=== PATIENT | male | born 1935 | race Caucasian/White ===

== ENCOUNTER 2022-02-07 17:53 | Inpatient (IN) | payer MEDICARE ==
[2022-02-07 18:30] LABS: #Monocytes 0.8 10x3/uL (0.0-1.1); #Neutrophils 5.9 10x3/uL (1.5-8.4); %Basophils 0.4 % (0.0-2.0); %Lymphocytes 10.1 % (18.0-47.0); %Monocytes 10.8 % (0.0-10.0); %Neutrophils 78.3 % (40.0-75.0); Hemoglobin 13.4 g/dL (13.5-17.5); Mean Corpuscular HGB CONC 34.4 g/dL (32.0-36.0); Mean Corpuscular Hemoglobin 31.5 pg (27.0-33.0); Mean Corpuscular Volume 91.5 fl (81.2-95.1); Mean Platelet Volume 10.1 fl (7.4-10.4); Platelet Count 150 10x3/uL (150-450); RBC Distribution Width 13.2 % (11.5-14.5); Red Blood Cell (RBC) Count 4.26 10x6/uL (4.32-5.72); White Blood Cell (WBC) Count 7.5 10x3/uL (3.5-10.5)
[2022-02-07] MEDS ORDERED: cefTRIAXone\\ROCEPHIN 2 GM VIAL ONE (18:42)
[2022-02-07 18:46] LABS: ALT (SGPT) 14 U/L (8-55); AST (SGOT) 24 U/L (5-34); Albumin 3.8 g/dL (3.4-4.8); Alkaline Phosphatase 63 U/L (40-110); Anion Gap 14 mmol/L (10-20); BUN (Urea Nitrogen) 16 mg/dL (8.4-25.7); Bilirubin, Total 0.6 mg/dL (0.2-1.2); CK (CPK) 975 U/L (30-200); Calc. Creatinine Clearance 0 mL/min (70-130); Calcium 8.8 mg/dL (7.8-10.44); Carbon Dioxide 25 mmol/L (23-31); Chloride 106 mmol/L (98-107); Estimated GFR 76; Globulin 2.7 g/dL (2.4-3.5); Glucose 122 mg/dL (83-110); Potassium 3.4 mmol/L (3.5-5.1); Protein, Total 6.5 g/dL (5.8-8.1); Sodium 142 mmol/L (136-145)
[2022-02-07 19:31] LABS: Bilirubin Neg (Negative); Blood, Urine 25 (Negative); Clarity Clear (Clear); Glucose, Urine (Dipstick) Normal (Negative); Ketone, Urine 5 mg/dL (Negative); Leukocyte Negative (Negative); Nitrite Negative (Negative); Protein, Urine (Dipstick) 15 mg/dl (Neg-Trace); Specific Gravity, Urine 1.015 (1.002-1.036); Urobilinogen Normal mg/dL (Less than 2)
[2022-02-07 19:40] LABS: Bacteria/HPF None Seen HPF (None Seen); RBC/HPF 0-3 HPF (0-3); Squamous Epithelial None Seen HPF (0-3); WBC/HPF None Seen HPF (0-3)
[2022-02-07] MEDS ORDERED: Vancomycin HCl 500 MG VIAL ONE (20:37)
[2022-02-07 20:55] LABS: SARS-CoV-2 NAA Rapid Test DETECTED (NotDetected)
[2022-02-07] MEDS ORDERED: Ascorbic Acid 500 mg Chewable Tablet PO SCH (22:30)
[2022-02-07] MEDS ORDERED: Aspirin 81 mg Enteric Coated Tablet PO SCH (22:30)
[2022-02-07] MEDS ORDERED: Cholecalciferol 1,000 UNITS (25 MCG) TAB PO SCH (22:30)
[2022-02-07] MEDS ORDERED: Potassium Chloride 20 MEQ TAB PO SCH (22:30)
[2022-02-07] MEDS ORDERED: PAXLOVID REQUEST IVPB PRN (22:39)
[2022-02-07 22:40] LABS: Magnesium 1.7 mg/dL (1.6-2.6)
[2022-02-07] MEDS ORDERED: Zinc Sulfate 220 MG CAP PO SCH (22:45)
[2022-02-07] MEDS ORDERED: Ziprasidone 20 MG VIAL ONE (23:13)
[2022-02-07] MEDS ORDERED: Sterile Water 10 ML ONE (23:13)
[2022-02-08] MEDS: Zinc Sulfate 220 MG CAP PO SCH (00:45)
[2022-02-08] MEDS: Lactated Ringer's 1,000 ML IV SCH ×4 (00:46→21:27)
[2022-02-08 04:31] LABS: Anion Gap 13 mmol/L (10-20); BUN (Urea Nitrogen) 12 mg/dL (8.4-25.7); CK (CPK) 1422 U/L (30-200); Calc. Creatinine Clearance 74 mL/min (70-130); Calcium 8.6 mg/dL (7.8-10.44); Carbon Dioxide 25 mmol/L (23-31); Chloride 108 mmol/L (98-107); Estimated GFR 85; Glucose 104 mg/dL (83-110); Potassium 3.4 mmol/L (3.5-5.1); Sodium 143 mmol/L (136-145)
[2022-02-08 04:36] LABS: #Basophils 0.1 10x3/uL (0.0-0.2); #Neutrophils 6.2 10x3/uL (1.5-8.4); %Basophils 0.6 % (0.0-2.0); %Eosinophils 0.1 % (0.0-6.0); %Lymphocytes 14.9 % (18.0-47.0); %Monocytes 11.3 % (0.0-10.0); %Neutrophils 72.9 % (40.0-75.0); Hemoglobin 12.7 g/dL (13.5-17.5); Mean Corpuscular HGB CONC 33.6 g/dL (32.0-36.0); Mean Corpuscular Volume 92.2 fl (81.2-95.1); Mean Platelet Volume 10.6 fl (7.4-10.4); Platelet Count 130 10x3/uL (150-450); RBC Distribution Width 13.2 % (11.5-14.5); White Blood Cell (WBC) Count 8.5 10x3/uL (3.5-10.5)
[2022-02-08] MEDS: Aspirin 81 mg Enteric Coated Tablet PO SCH (08:02)
[2022-02-08] MEDS: Ascorbic Acid 500 mg Chewable Tablet PO SCH (08:02)
[2022-02-08] MEDS: Cholecalciferol 1,000 UNITS (25 MCG) TAB PO SCH (08:02)
[2022-02-08] MEDS: Enoxaparin Sodium 40 MG/0.4 ML SYRINGE SC SCH (08:02)
[2022-02-08] MEDS: Carbamide Peroxide 6.5% Otic Drops 15 ml Bottle EA EAR SCH ×2 (08:03→19:31)
[2022-02-08] MEDS: Lorazepam 2 MG/ML VIAL SLOW IVP PRN (12:50)
[2022-02-08] MEDS ORDERED: Pantoprazole 40 MG VIAL IVP SCH (14:00)
[2022-02-08] MEDS ORDERED: Haloperidol Lactate 5 MG/ML VIAL SLOW IVP SCH (14:00)
[2022-02-09] MEDS: Lorazepam 2 MG/ML VIAL SLOW IVP PRN (03:40)
[2022-02-09] MEDS: Lactated Ringer's 1,000 ML IV SCH ×3 (03:40→11:08)
[2022-02-09] MEDS: Ascorbic Acid 500 mg Chewable Tablet PO SCH (08:02)
[2022-02-09] MEDS: Cholecalciferol 1,000 UNITS (25 MCG) TAB PO SCH (08:02)
[2022-02-09] MEDS: Pantoprazole 40 MG VIAL IVP SCH (08:02)
[2022-02-09] MEDS: Aspirin 81 mg Enteric Coated Tablet PO SCH (08:02)
[2022-02-09] MEDS: Carbamide Peroxide 6.5% Otic Drops 15 ml Bottle EA EAR SCH ×2 (08:03→19:59)
[2022-02-09] MEDS: Enoxaparin Sodium 40 MG/0.4 ML SYRINGE SC SCH (08:03)
[2022-02-09] MEDS: hydrALAZINE 20 MG/ML VIAL SLOW IVP PRN ×2 (18:25→23:30)
[2022-02-09] MEDS: Zinc Sulfate 220 MG CAP PO SCH (19:59)
[2022-02-10] MEDS: Lorazepam 2 MG/ML VIAL SLOW IVP PRN (01:18)
[2022-02-10] MEDS ORDERED: Sterile Water 10 ML VIAL FS PRN (01:30)
[2022-02-10] MEDS ORDERED: Ziprasidone 20 MG VIAL IM SCH (01:30)
[2022-02-10] MEDS ORDERED: Sterile Water 10 ML ONE (01:36)
[2022-02-10] MEDS: hydrALAZINE 20 MG/ML VIAL SLOW IVP PRN ×2 (04:25→07:42)
[2022-02-10 05:43] VITALS: BMI 24.0
[2022-02-10] MEDS: Aspirin 81 mg Enteric Coated Tablet PO SCH (07:42)
[2022-02-10] MEDS: Ascorbic Acid 500 mg Chewable Tablet PO SCH (07:42)
[2022-02-10] MEDS: Cholecalciferol 1,000 UNITS (25 MCG) TAB PO SCH (07:42)
[2022-02-10] MEDS: Pantoprazole 40 MG VIAL IVP SCH (07:42)
[2022-02-10] MEDS: Carbamide Peroxide 6.5% Otic Drops 15 ml Bottle EA EAR SCH ×2 (07:42→21:12)
[2022-02-10] MEDS: Enoxaparin Sodium 40 MG/0.4 ML SYRINGE SC SCH (07:43)
[2022-02-10] MEDS ORDERED: hydrALAZINE 25 MG TAB PO SCH (11:00)
[2022-02-10] MEDS: Acetaminophen 325 MG TAB PO PRN ×2 (17:17→23:09)
[2022-02-10] MEDS ORDERED: Atorvastatin Calcium 20 MG TAB PO SCH (21:00)
[2022-02-10] MEDS ORDERED: Donepezil HCl 5 MG TAB PO SCH (21:00)
[2022-02-10] MEDS ORDERED: Tamsulosin HCl 0.4 MG CAP PO SCH (21:00)
[2022-02-10] MEDS: Zinc Sulfate 220 MG CAP PO SCH (21:11)
[2022-02-10] MEDS ORDERED: Metoprolol Tartrate 25 MG TAB PO SCH (22:00)
[2022-02-11] MEDS ORDERED: Metoprolol Tartrate 25 MG TAB PO SCH (09:00)
[2022-02-11] MEDS: Acetaminophen 325 MG TAB PO PRN (09:41)
[2022-02-11] MEDS: Enoxaparin Sodium 40 MG/0.4 ML SYRINGE SC SCH (09:41)
[2022-02-11] MEDS: Ascorbic Acid 500 mg Chewable Tablet PO SCH (09:42)
[2022-02-11] MEDS: Aspirin 81 mg Enteric Coated Tablet PO SCH (09:42)
[2022-02-11] MEDS: Carbamide Peroxide 6.5% Otic Drops 15 ml Bottle EA EAR SCH (09:42)
[2022-02-11] MEDS: Cholecalciferol 1,000 UNITS (25 MCG) TAB PO SCH (09:42)
[2022-02-11 13:03] LABS: Anion Gap 12 mmol/L (10-20); BUN (Urea Nitrogen) 18 mg/dL (8.4-25.7); Calc. Creatinine Clearance 68 mL/min (70-130); Calcium 9.1 mg/dL (7.8-10.44); Carbon Dioxide 30 mmol/L (23-31); Chloride 99 mmol/L (98-107); Estimated GFR 82; Glucose 87 mg/dL (83-110); Magnesium 1.8 mg/dL (1.6-2.6); Potassium 3.5 mmol/L (3.5-5.1); Sodium 137 mmol/L (136-145)
[2022-02-11 16:06] VITALS: BP 120/75; TEMP 98.1
== END 2022-02-11 16:36 | disposition critical access hospital (66) | DRG 564 ==
LOC: CSHERS 17:53 → CSHICU 22:16 → EDBD 22:16 → CSHICU 02-08 00:34 → UNDOADMIN 02-08 00:34 → CSHTELE 02-10 13:05
PROVIDERS: ADMIT Family Medicine; ATTEND Hospitalist
PROC: 8E0ZXY6 Isolation (ICD-10-PCS; principal; 2022-02-07)
DX: T79.6XXA Traumatic ischemia of muscle, initial encounter (principal); J12.82 Pneumonia due to coronavirus disease 2019; U07.1 COVID-19; G93.49 Other encephalopathy; F03.90 Unspecified dementia, unspecified severity, without behavioral disturbance, psychotic disturbance, mood disturbance, and anxiety; E78.00 Pure hypercholesterolemia, unspecified; N40.0 Benign prostatic hyperplasia without lower urinary tract symptoms; I10 Essential (primary) hypertension; E78.5 Hyperlipidemia, unspecified; Z66 Do not resuscitate; E87.6 Hypokalemia; W19.XXXA Unspecified fall, initial encounter; H40.9 Unspecified glaucoma; H61.23 Impacted cerumen, bilateral; Y92.002 Bathroom of unspecified non-institutional (private) residence as the place of occurrence of the external cause
CPT/HCPCS: 36415; 70450; 71045; 72125; 80048; 80053; 81003; 81015; 82550; 83605; 83735; 85025; 87040; 87086; 93005; 93010; 93306; C9113; J0360; J0696; J1630; J1650; J2060; J3370; J3486; J7120; U0002